=== PATIENT | female | born 1975 | race Caucasian/White ===

== ENCOUNTER 2025-03-10 17:07 | Emergency (ER) | payer OTHER ==
[~2025-03-10] VITALS: Ht 162.6 cm; Wt 81.6 kg
[2025-03-10] MEDS ORDERED: LORAZEPAM 1 MG TABLET ONE (17:45)
[2025-03-10] MEDS: LORAZEPAM 1 MG TABLET PO ONE (17:49)
[2025-03-10 18:05] LABS: APPEARANCE,URINE CLEAR (CLEAR); BILIRUBIN,URINE Negative (NEGATIVE); BLOOD, URINE Negative Ery/uL (NEGATIVE); COLOR,URINE YELLOW (YELLOW); KETONES,URINE Negative (NEGATIVE); LEUKOCYTE ESTERASE ,URINE Negative (NEGATIVE); PH,URINE 5.5 (5.0-8.0); PROTEIN,URINE 30 mg/dl (NEGATIVE); UGLUCOSE Negative (NEGATIVE); UROBILINOGEN,URINE 0.2 EU/dL (0.2)
[2025-03-10 18:09] LABS: NITRITE, URINE NEGATIVE (NEGATIVE)
[2025-03-10 18:10] LABS: ADD URINE CULTURE NO; BACTERIA,URINE Few /HPF (None Seen); RBC,URINE 0-2 /HPF (0-2); SQUAMOUS EPITHELIAL CELL,UR Few /HPF (None Seen); WBC,URINE 0-2 /HPF (0-3)
[2025-03-10 18:11] LABS: CALCIUM OXALATE CRYSTALS,UR Few /HPF (None Seen); PREGNANCY TEST URINE QUAL NEGATIVE (NEGATIVE)
[2025-03-10] MEDS ORDERED: OLANZAPINE 5 MG TABLET ONE (18:35)
[2025-03-10] MEDS: OLANZAPINE 5 MG TABLET PO ONE (18:37)
[2025-03-10 20:21] LABS: BASOPHILS # (AUTO) 0.1 K/uL (0.0-0.2); BASOPHILS % (AUTO) 0.6 % (0.0-2.0); EOSINOPHILS % (AUTO) 0.1 % (0.0-6.0); HEMATOCRIT 44 % (33-45); HEMOGLOBIN 14.6 g/dL (11.5-14.8); LYMPHOCYTES # (AUTO) 1.6 K/uL (0.8-4.8); LYMPHOCYTES % (AUTO) 16.3 % (20.0-44.0); MEAN CORPUSCULAR HEMOGLOBIN 30 PG (26.0-33.0); MEAN CORPUSCULAR HGB CONC 33 g/dl (31.0-36.0); MEAN CORPUSCULAR VOLUME 90 fL (82-100); MONOCYTES # (AUTO) 0.4 K/uL (0.1-1.30); MONOCYTES % (AUTO) 3.5 % (2.0-12.0); NEUTROPHILS % (AUTO) 79.5 % (43.0-81.0); PLATELET COUNT (AUTO) 338 K/uL (150-450); RED BLOOD CELL COUNT(AUTO) 4.92 MIL/uL (4.0-5.2); RED CELL DISTRIBUTION WIDTH 13.4 % (11.5-15.0)
[2025-03-10 20:27] LABS: CALCIUM, SERUM 8.9 mg/dL (8.5-10.1); CARBON DIOXIDE 21 mmol/L (21-32); CHLORIDE 108 mmol/L (98-107); CREATININE 0.7 mg/dL (0.6-1.3); GLUCOSE 114 mg/dL (74-106); SODIUM SERUM 137 mmol/L (136-145); UREA NITROGEN, BLOOD 10 mg/dL (7-18)
[2025-03-10 20:32] LABS: ALANINE AMINOTRANSFERASE 12 U/L (12-78); ALBUMIN 3.3 g/dL (3.4-5.0); ALKALINE PHOSPHATASE 83 U/L (46-116); ASPARTATE AMINOTRANSFERASE 11 U/L (15-37); BILIRUBIN,DIRECT 0.1 mg/dL (0.0-0.2); BILIRUBIN,TOTAL 0.4 mg/dL (0.2-1.0); SALICYLATE 4.5 mg/dL (2.8-20.0); TOTAL PROTEIN, SERUM 7.7 g/dL (6.4-8.2)
[2025-03-10 20:33] LABS: ACETAMINOPHEN <10 ug/ml (10-30); ALCOHOL, BLOOD < 3 mg/dL (0-10)
[2025-03-10 20:47] LABS: AMPHETAMINE, URINE NEGATIVE (NEGATIVE); BARBITURATE, URINE NEGATIVE (NEGATIVE); BENZODIAZEPINE, URINE NEGATIVE (NEGATIVE); CANNABINOID, URINE NEGATIVE (NEGATIVE); COCCAINE, URINE NEGATIVE (NEGATIVE); OPIATE, URINE NEGATIVE (NEGATIVE); PHENCYCLIDINE SCREEN,URINE NEGATIVE (NEGATIVE)
[2025-03-11 05:45] VITALS: BP 148/105; TEMP 98.7; O2SAT 99
== END 2025-03-11 05:45 ==
LOC: ER 17:12
DX: F41.0 Panic disorder [episodic paroxysmal anxiety] (principal); R44.0 Auditory hallucinations; F17.200 Nicotine dependence, unspecified, uncomplicated; F32.A Depression, unspecified; Z59.00 Homelessness unspecified; Z60.2 Problems related to living alone; Z20.822 Contact with and (suspected) exposure to COVID-19
CPT/HCPCS: 36415; 80048-TC; 80076-TC; 81001; 84703-TC; 85025-TC; G0480

== ENCOUNTER 2025-03-13 17:29 | Emergency (ER) | payer OTHER ==
[~2025-03-13] VITALS: Ht 162.6 cm; Wt 81.6 kg
[2025-03-13] MEDS ORDERED: IV NS 0.9% 1,000 ML BAG IV ONE (18:00)
[2025-03-13] MEDS ORDERED: LORAZEPAM INJ 2 MG/ML VIAL ONE (18:00)
[2025-03-13] MEDS ORDERED: LORAZEPAM INJ 2 MG/ML VIAL IV ONE (18:00)
[2025-03-13] MEDS ORDERED: LIDOCAINE 5% (PATCH) 1 EA PATCH TP STA (18:17)
[2025-03-13] MEDS ORDERED: ACETAMINOPHEN 325 MG TABLET ONE (18:33)
[2025-03-13] MEDS ORDERED: LIDOCAINE 5% (PATCH) 1 EA PATCH TP ONE (18:33)
[2025-03-13] MEDS: ACETAMINOPHEN 325 MG TABLET PO ONE (18:36)
[2025-03-13 19:26] VITALS: BP 169/107; TEMP 98.7; O2SAT 96
[2025-03-13] MEDS ORDERED: LIDO30AD10 TP (19:59)
[2025-03-13] MEDS ORDERED: IBUP-1955 PO (19:59)
== END 2025-03-13 19:27 | disposition left against medical advice (07) ==
LOC: ER 17:32
DX: M53.3 Sacrococcygeal disorders, not elsewhere classified (principal); R42 Dizziness and giddiness; F29 Unspecified psychosis not due to a substance or known physiological condition; R04.0 Epistaxis; R00.2 Palpitations; R05.9 Cough, unspecified; F17.200 Nicotine dependence, unspecified, uncomplicated; F41.9 Anxiety disorder, unspecified; Z60.2 Problems related to living alone
CPT/HCPCS: J2060; J7030

== ENCOUNTER 2025-03-14 11:34 | Emergency (ER) | payer OTHER ==
[~2025-03-14 11:34] MED LIST: IBUP-1955 PO; LIDO30AD10 TP
== END 2025-03-14 11:50 | disposition left against medical advice (07) ==
LOC: ER 11:41
DX: R45.851 Suicidal ideations (principal); Z53.21 Procedure and treatment not carried out due to patient leaving prior to being seen by health care provider

== ENCOUNTER 2025-03-14 13:14 | Emergency (ER) | payer OTHER | END 2025-03-14 13:57 | disposition left against medical advice (07) | LOC: ER 13:16 | DX: R42 Dizziness and giddiness (principal); Z53.21 Procedure and treatment not carried out due to patient leaving prior to being seen by health care provider ==